=== PATIENT | female | born 1935 | race Caucasian/White ===

== ENCOUNTER 2016-08-30 03:59 | Observation (INO) | payer MEDICARE, OTHER ==
--- NOTE | ~2016-08-30 | DS ---
Discharge Summary [facility] [address] [place]. [address] NAME: RENATA SUAREZ : 37 STATUS : DIS Patsy PAT#: [id number] AGE: 80 ADM/REG DATE : 08/30/16 MR#: [id number] REPORT SERV DATE: 09/02/16 DICTATED BY: JR. MARCANO WILLIAM JOHN DATE: 09/01/16 REPORT STATUS : Draft TRANSCRIBED BY: MODL DATE: 09/01/16 ADMISSION DATE: 08/30/2016 DISCHARGE DATE: 09/01/2016 DISCHARGE DIAGNOSES: 1. Atrial fibrillation with rapid ventricular response. 2. Chronic obstructive pulmonary disease. 3. Culture negative urinary tract infection. 4. Acute kidney injury. 5. Elevated troponin without symptoms or EKG felt to be secondary to atrial fibrillation. 6. Hypotension secondary to hypovolemia. OPERATIONS, PROCEDURES, AND TREATMENTS: 1. Echocardiogram done 08/30/2016 which showed normal left ventricular systolic function, ejection fraction of 55% with mild diastolic dysfunction, normal right ventricular chamber size and systolic function, no significant valvular regurgitation, or stenosis. 2. Chest x-ray done 08/30/2016, which showed normal lungs, heart size normal. 3. Chest x-ray done 09/01/2016 personally reviewed was normal. CONSULTING PHYSICIAN: Dr. Mark of Cardiology. DISCHARGE MEDICATIONS: 1. Diltiazem CD 180 mg orally daily. 2. Propafenone 150 mg orally three times a day. 3. Coumadin 5 mg orally daily, dispensing one week supply and following up for INR in the Coumadin Clinic at [facility]. 4. Albuterol inhaler two puffs p.r.n. 5. Levaquin 750 mg orally daily through 09/03/2016. 6. Aspirin 81 mg orally daily. HOSPITAL COURSE: The patient was a 80-year-old white female, presented to emergency room at [facility] at 08/30/2016 with dysuria, weakness, and altered mental status. The patient has recently moved from [place], [place], to be close to her family, moved in with her daughter after her . She has suffered several mechanical falls and has been undergoing an extensive neurologic evaluation including MRI, EEG, EMG, and CT angiogram and is scheduled for followup in that regard. She reportedly had a urine culture with possible ESBL, Klebsiella pneumoniae, and has actually seen Dr. Covarrubias for this. She has persistent dysuria with suprapubic discomfort and has had increasing confusion over the past 24 hours and was therefore admitted to [facility]. Initial exam showed the patient to be afebrile, heart rate in the 160s, respiratory rate of 22, repeat heart rate was 110. For exact details of the admission history, physical, and data, please see Dr. Wheeler's excellent dictated history and physical. The patient is admitted to [facility] for atrial fibrillation with rapid ventricular response. She was placed on diltiazem drip and converted over to oral. Her CHADS score was Discharge Summary [facility] [address] [place] [address] NAME: RENATA SUAREZ : 36 STATUS : DIS Patsy PAT#: [id number] AGE: 80 ADM/REG DATE : 08/30/16 MR#: [id number] REPORT SERV DATE: 09/02/16 DICTATED BY: JR. MARCANO WILLIAM JOHN DATE: 09/01/16 REPORT STATUS : Draft TRANSCRIBED BY: TAM DATE: 09/01/16 3. She was started on Coumadin. The patient was also on heparin drip. I discussed this with Dr. Mark. He felt this was not necessary. The patient was found to have elevated troponins which was thought to be due to atrial fibrillation/rapid ventricular response. The patient had an echocardiogram without significant dysfunction other than mild diastolic dysfunction. Please see above for details. She was placed on propafenone and tolerated this well. The patient will be discharged on aspirin, propafenone, diltiazem, and Coumadin. Her INR at discharge is 1.2. She will follow up with the Coumadin Clinic at [facility] on Sunday for redraw. I dispensed one week's worth of Coumadin. Regarding the urinary tract infection, a review of her outpatient cultures done 08/07/2016 showed Klebsiella pneumoniae which was sensitive to all antibiotics checked including ciprofloxacin. She was placed on Levaquin for a 5-day total course. Regarding the acute kidney injury, this resolved without incident. The patient will be discharged home today 09/01/2016. She will follow up with Dr. Mark next available; with her primary care provider, Dr. Perdue, in one to two weeks; and she will follow up with Coumadin clinic on Sunday. Again, her discharge INR is 1.2, and she was dispensed seven tablets of 5 mg of Coumadin. DISCHARGE DIET: Cardiac. ACTIVITY: As tolerated. For discharge exam and laboratory, please see daily progress note. This discharge took 33 minutes for patient encounter, coordination of care, and documentation. WGabriellaF/CARLOSL Moses Marcano Jr, MD / [id number] CC: Moses Marcano Jr, MD Allen Sherwood, M.D.
--- NOTE | ~2016-08-30 | CN ---
Consultation Report [facility] [address] [place]. [address] NAME: RENATA SUAREZ : 37 STATUS : ADM Patsy PAT#: [id number] AGE: 80 ADM/REG DATE : 08/30/16 MR#: [id number] REPORT SERV DATE: 08/30/16 DICTATED BY: MOSES GAVIN DATE: 08/30/16 REPORT STATUS : Draft TRANSCRIBED BY: MODL DATE: 08/30/16 CARDIOLOGY CONSULTATION DATE OF CONSULTATION: REASON FOR CONSULTATION: Atrial fibrillation. HISTORY OF PRESENT ILLNESS: Ms. Suarez is a 80-year-old woman with a possible history of COPD. She recently moved from [place] after the of her to live with her daughter. She has had problems with recurrent falls and is having a neurologic evaluation as well as recurrent bladder infections. She was brought to the hospital due to dysuria, weakness, and mental status changes which I think was more confusion. She denies any particular symptoms and she does know she is in the hospital, but is unclear why she is here. She says she may have had a reaction to her antibiotic. She denies chest pain or dyspnea. No palpitations or lightheadedness. REVIEW OF SYSTEMS: Some chills were reported before coming in, but no fever, no chest pain, palpitations, dyspnea, or nausea. The review of systems is as per the history of present illness. Ten other systems are negative. PAST MEDICAL HISTORY: Possible COPD based on albuterol use at home, recurrent UTIs, and recurrent falls. FAMILY HISTORY: Positive for coronary artery disease and stroke. SOCIAL HISTORY: The patient is , is currently living with her daughter. ALLERGIES: SULFA, NEOMYCIN, BACITRACIN, CIPROFLOXACIN, POLYMYXIN. HOME MEDICATIONS: Acetaminophen, albuterol as directed, artificial tears, and nitrofurantoin. PHYSICAL EXAMINATION: VITAL SIGNS: Heart rates 82, blood pressure 92/54. GENERAL: The patient is pleasant, elderly white female, in no apparent distress. HEENT: Conjunctivae are anicteric, no xanthelasma, lips without cyanosis. NECK: Supple, normal JVP, carotids +2 without bruit. CARDIOVASCULAR: Irregular. Normal S1, S2. No significant murmur. LUNGS: Clear to auscultation. ABDOMEN: Soft, nontender, nondistended, with normal bowel sounds. No hepatomegaly. EXTREMITIES: Trace edema. Consultation Report [address] [place]. [address] NAME: RENATA SUAREZ : 37 STATUS : ADM Patsy PAT#: [id number] AGE: 80 ADM/REG DATE : 08/30/16 MR#: [id number] REPORT SERV DATE: 08/30/16 DICTATED BY: MOSES GAVIN DATE: 08/30/16 REPORT STATUS : Draft TRANSCRIBED BY: MODL DATE: 08/30/16 NEURO/PSYCH: Alert and oriented to person, place and time. No obvious neurologic deficits. Mood and affect normal. DATA: Current EKG shows sinus rhythm with frequent premature atrial beats. Nonspecific ST- segment changes. Hematocrit 45.8, white blood cell count is 13.5. BNP level is 273. Creatinine is 1.39. GFR of 36. Urinalysis is consistent with bladder infection. Troponin 0.38. IMPRESSION: 1. Paroxysmal atrial fibrillation, now back in sinus rhythm. 2. Urinary tract infection. 3. Mental status changes. 4. Demand ischemia. 5. Dehydration. 6. Acute kidney injury. RECOMMENDATIONS: Ms. Suarez presents with mostly mental status changes and dehydration. She did have some atrial fibrillation, but is converted back to sinus rhythm. I think probably her underlying illness is probably what drove her transient atrial fibrillation. We will follow up on her echocardiogram. Her CHADS-VASc 2 score is 3. We would certainly have indication for anticoagulation, although she has had some recurrent falls that would have to be monitored closely. I do not think her elevated troponin is consistent with acute coronary syndrome without any symptoms and does suggest demand ischemia. I think medical management would be warranted. We will have to see what her baseline mental status is. WO/MODL Moses Gavin M.D., Ph.D, F.A.C.C. / [id number] CC: Moses Marcano Jr, MD Allen Sherwood, M.D.
--- NOTE | ~2016-08-30 | HP ---
History And Physical [facility] [address] [place]. [address] NAME: RENATA SUAREZ : 36 STATUS : ADM Patsy PAT#: [id number] AGE: 80 ADM/REG DATE : 08/30/16 MR#: [id number] REPORT SERV DATE: 08/30/16 DICTATED BY: ISRAEL NORWOOD DATE: 08/30/16 REPORT STATUS : Draft TRANSCRIBED BY: MODL DATE: 08/30/16 DATE OF ADMISSION: 08/30/2016 POINT OF ENTRY: [facility] Emergency Department. CHIEF COMPLAINT: Dysuria, weakness, altered mental status. HISTORY OF PRESENT ILLNESS: Ms. Suarez is a 80-year-old female with no significant discernible previous medical history, who was brought to the emergency department today by her family members for reports of persistent dysuria with associated weakness, anorexia, and altered mental status. The patient recently moved up from [place], [place] to be close to her family and recently moved in with her daughter after the recent passing away of her . While up in [place], the patient has suffered multiple mechanical falls and is currently undergoing extensive neurologic evaluation, including MRI, EEG, EMG, and CTA. Results of which are pending at the time of dictation. In addition to her mechanical falls, she was reportedly diagnosed with urinary tract infection in the beginning of July. The urine culture which is available in [facility] shows possible ESBL Klebsiella pneumoniae. She was placed on a week's course of amoxicillin, which did not improve her symptoms nor did it clear her urinary tract infection. Therefore, she was referred to Infectious disease's Dr. Covarrubias. She saw Dr. Covarrubias for the first time in clinic on Sunday and was placed on a course of Macrobid therapy. The patient and family states that she has had persistent dysuria and suprapubic discomfort since her initial diagnosis approximately a month ago. Family has noticed acute worsening of some confusion over the last 24 hours primarily prompting their presentation to the emergency department. They also report chills, anorexia as well as weakness and generalized feeling poorly. She felt so poorly she was unable to attend her neurology follow up yesterday to review the results of all the studies. She denies any fevers, chest pain, palpitations, shortness of breath, abdominal pain, nausea, vomiting, diarrhea, or constipation. COMPREHENSIVE REVIEW OF SYSTEMS: Otherwise negative unless listed in history of present illness. Initial evaluation in the emergency department notable for atrial fibrillation with RVR with heart rates initially in the 160s to 170s with some associated hypotension with blood pressure 80s/50s. With IV fluid resuscitation as well as placement of a Cardizem drip, her heart rates are now better controlled in the 90s to 110s with pressures now in 90s to 100s over 50s to 60s. Labs notable for a creatinine of 1.39, troponin of 0.38, white count of 13,500 as well as a repeat urinalysis consistent with persistent urinary tract infection. The patient was subsequently admitted to the Hospitalist Service for further evaluation and management. PREVIOUS MEDICAL HISTORY: History And Physical [address] [address] NAME: RENATA SUAREZ : 36 STATUS : ADM Patsy PAT#: [id number] AGE: 80 ADM/REG DATE : 08/30/16 MR#: [id number] REPORT SERV DATE: 08/30/16 DICTATED BY: ISRAEL NORWOOD DATE: 08/30/16 REPORT STATUS : Draft TRANSCRIBED BY: TAM DATE: 08/30/16 1. Recurrent urinary tract infection with recent urine culture showing ESBL Klebsiella pneumoniae. 2. Possible COPD. SURGICAL HISTORY: 1. Back surgery. 2. Cholecystectomy. 3. Abdominal hysterectomy. ALLERGIES: CIPROFLOXACIN, NEOSPORIN, TETRACYCLINE, AND SULFA DRUGS. HOME MEDICATIONS: Reportedly just the Macrobid 100 mg b.i.d. Her lists needs to be confirmed by Pharmacy. SOCIAL HISTORY: Denies any tobacco, alcohol, or illicits. Recently . Now lives with her daughter. FAMILY MEDICAL HISTORY: Mother with stroke and coronary artery disease. Father with coronary artery disease. Siblings with Parkinson disease and diabetes. LABORATORY DATA AND IMAGIN. White count is 13.5, hemoglobin is 15.8, hematocrit is 45.8, platelet count is 200. INR 1.0. 2. Sodium is 139, potassium 3.9, chloride 104, carbon dioxide 25, BUN 17, creatinine 1.39, glucose is 132, calcium is 9.4, magnesium is 1.8. 3. Troponin is 0.38, BNP is 274. 4. Lactic acid is 2.2. 5. Urinalysis: Specific gravity is 1.019, cloudy with large leukocyte esterase with 12 red blood cells with 174 white blood cells per high-powered field with many bacteria. 6. Chest x-ray per my review shows no acute cardiopulmonary abnormality. 7. ABG; pH is 7.42, pCO2 is 31, pO2 is 80, bicarbonate is 20, saturating 96% on 2 L of cannula. 8. EKG per my review shows atrial fibrillation with RVR. Heart rates in the 160s-170s. No evidence of any acute ischemia or infarction. PHYSICAL EXAMINATION: VITAL SIGNS: Temperature is afebrile, pulse initially in the 160s, respirations 22, saturating 90% on room air. On recheck, pulse is now in the 110s with blood pressure of 90s/60s. GENERAL: The patient is awake, alert, in no acute distress, resting comfortably. She is a well-developed, well-nourished, elderly female. Family is at bedside. HEENT: Atraumatic and normocephalic. Slightly dry mucous membranes. Pupils are equal, round, reactive to light and accommodation. Extraocular movements intact. No scleral icterus. NECK: No jugular venous distention. No carotid bruits. CARDIAC: Irregularly irregular rate and rhythm. No murmurs or gallops. Normal S1 and S2. LUNGS: Decreased breath sounds in the bases with some inspiratory crackles, which improved History And Physical [address] [address] NAME: RENATA SUAREZ : 36 STATUS : ADM Patsy PAT#: [id number] AGE: 80 ADM/REG DATE : 08/30/16 MR#: [id number] REPORT SERV DATE: 08/30/16 DICTATED BY: ISRAEL NORWOOD DATE: 08/30/16 REPORT STATUS : Draft TRANSCRIBED BY: MODL DATE: 08/30/16 with repeated inspiration. ABDOMEN: Soft, mildly tender to palpation over the suprapubic area. Otherwise, no rebound, guarding, or rigidity. EXTREMITIES: Warm and well perfused. No cyanosis, clubbing, or edema. SKIN: Warm and dry. PSYCH: Affect appropriate. NEURO: Alert and oriented x3. Cranial nerves II through XII grossly intact. Speech is normal. Gait not assessed. ASSESSMENT: Ms. Suarez is a 80-year-old female with recurrent urinary tract infection, recently placed on Macrobid, who presents to the emergency department with persistent dysuria as well as worsening confusion and was found to have evidence of atrial fibrillation with rapid ventricular response. PROBLEM LIST: 1. Atrial fibrillation with rapid ventricular response. 2. Dehydration, acute kidney injury. 3. Hypotension. 4. Leukocytosis. 5. Recurrent urinary tract infections. 6. Elevated troponin level. PLAN: 1. Atrial fibrillation with RVR. The patient's heart rate is much better controlled after digoxin load as well as placed on a diltiazem infusion. The patient's CHADS2-VASc score is 3 minimum. Therefore, we will place her on anticoagulation. We will consult Cardiology for assistance. Order an echocardiogram as well as continue to trend out cardiac enzymes. 2. Urinary tract infection. Given the patient's recent urine culture showing possible ESBL Klebsiella pneumoniae, we will place the patient on IV Merrem. Follow up this urine culture. 3. Acute kidney injury and dehydration. Provide aggressive IV fluid hydration. Recheck BMP in the morning. 4. Elevated troponin level. The patient denies any chest pain. Her EKG is nonischemic. I suspect this is likely demand ischemia from the patient's underlying infection, her AFib with RVR as well as renal insufficiency. We will continue to trend out cardiac enzymes. We will give the patient a single dose of aspirin. Cardiology has been consulted for AFib with RVR as well as we have already been placed on a heparin infusion for AFib with RVR. 5. Leukocytosis, likely secondary to urinary tract infection. Chest x-ray is clear. Blood cultures were obtained as well as urine cultures, which will need to be followed up. Lactic acids within normal limits. 6. Hypotension. The patient initially had some mild hypotension, suspect mainly due to AFib with RVR as well as dehydration. This has improved somewhat with IV fluids as well as improved rate control. We will continue to monitor. Of note, lactic acid was within normal limits. 7. DVT prophylaxis. Heparin infusion. History And Physical [address] [place]. [address] NAME: RENATA SUAREZ DANGELO : 37 STATUS : ADM Patsy PAT#: [id number] AGE: 80 ADM/REG DATE : 08/30/16 MR#: [id number] REPORT SERV DATE: 04/05/17 DICTATED BY: ISRAEL NORWOOD DATE: 08/30/16 REPORT STATUS : Draft TRANSCRIBED BY: TAM DATE: 08/30/16 CODE STATUS: The patient wished to be full code. JCB/TAM Israel Norwood MD / [id number] CC: Quincy Perdue M.D.
[2016-08-30 02:46] LABS: BE (BASE EXCESS) -3.5 MEQ/L (0 +/- 2.5); CARBOXYHEMOGLOBIN 1.8 % (0-3); DEVICE NC; HCO3 (ACTUAL BICARBONATE) 19.9 MEQ/L (23-27); HEMOBLOGIN CONTENT 14.9 G/DL (12-16); INSTRUMENT SERIAL # 8087; METHEMOGLOBIN 0.1 % (0-3); O2 CONTENT 19.7 VOL% (18-24); PCO2 (CO2 TENSION) 31 MMHG (35-45); PO2 (O2 TENSION) 80 MMHG (79-93); SAMPLE Arterial; pH 7.42 (7.37-7.43)
[2016-08-30 02:51] LABS: BASOPHILS 0.1 %; BASOPHILS ABSOLUTE 0.01 10/3/uL (0.0-0.16); EOSINOPHILS 2.5 %; EOSINOPHILS ABSOLUTE 0.33 10/3/uL (0.0-0.53); HEMOGLOBIN 15.8 g/dL (12.0-16.0); IMMATURE GRANULOCYTES 0.4 %; IMMATURE GRANULOCYTES ABSOLUTE 0.05 10/3/uL (0.0-0.11); LYMPHOCYTES 5.3 %; LYMPHOCYTES ABSOLUTE 0.71 10/3/uL (0.67-4.30); MEAN CORPUS HGB CONC 34.5 g/dL (32.0-36.0); MEAN CORPUSCULAR HEMOGLOB 31.4 pg (26.0-34.0); MEAN CORPUSCULAR VOLUME 91.1 fL (80-100); MEAN PLATELET VOLUME 10.7 fL (9.2-13.0); MONOCYTES ABSOLUTE 0.94 10/3/uL (0.21-1.20); NEUTROPHILS 84.7 %; NEUTROPHILS ABSOLUTE 11.42 10/3/uL (2.02-8.40); PLATELET COUNT 200 10/3/uL (150-400); PROTIME (NOT ORD) 13.1 SEC (12.0-14.5); RBC DISTRIBUTION WIDTH 12.9 % (12.0-16.0); RED CELL COUNT 5.03 10/6/uL (4.0-5.6)
[2016-08-30 02:52] LABS: PARTIAL THROMBO TIME 32.1 SEC (22.5-37.2)
[2016-08-30 02:53] LABS: ER CBC TAT 0 Hrs 14 Mins; HEMATOCRIT 45.8 % (36.0-48.0); MANUAL DIFF NO %; WHITE BLOOD CELLS 13.5 10/3/uL (4.5-10.5)
[2016-08-30 03:01] LABS: LACTATE 2.2 MMOL/L (0.3-2.4)
[2016-08-30 03:02] LABS: CALCIUM, SERUM 9.4 MG/DL (8.5-10.4); CHLORIDE, SERUM 104 MMOL/L (96-112); POTASSIUM, SERUM 3.9 MMOL/L (3.5-5.3); SODIUM, SERUM 139 MMOL/L (135-148)
[2016-08-30 03:04] LABS: BUN (BLOOD UREA NITROGEN) 17 MG/DL (6-23); CHEST PAIN PROFILE TAT 0 Hrs 25 Mins; CO2 (CARBON DIOXIDE) 25 MMOL/L (24-34); CREATININE 1.39 MG/DL (0.55-1.02); GFR AFRICAN AMERICAN 42 ML/MIN (>=60); GFR NON AFRICAN AMERICAN 36 ML/MIN (>=60); GLUCOSE, SERUM 132 MG/DL (60-99); TROPONIN I 0.38 NG/ML (<0.05)
[2016-08-30 04:16] LABS: ASCORBIC ACID (UR NOT ORDER) NEG (NEG); BILIRUBIN, URINE NEGATIVE (NEG); ER URINALYSIS TAT 0 Hrs 00 Mins; KETONE, URINE NEGATIVE (NEG); LEUKOCYTE ESTERASE(NOT OR LARGE (NEG); NITRITE (URINE) NEG (NEG); WBC (NOT ORDERED) (RFLEX) 174 (0-5)
[2016-08-30] MEDS ORDERED: 8 HOUR650 MG PO (07:57)
[2016-08-30] MEDS ORDERED: TEARS PURE OPH (07:58)
[2016-08-30] MEDS ORDERED: ALBUTEROL5 PO (07:58)
[2016-08-30] MEDS ORDERED: MACROBID PO (08:02)
[2016-08-30 09:54] LABS: CK-MB 13.2 NG/ML; CKMB INDEX (NOT ORD) 9.5; FREE T4 1.01 NG/DL (0.76-1.46)
[2016-08-30 09:55] LABS: TROPONIN I 2.38 NG/ML (<0.05); ULTRASENSITIVE TSH 2.35 MCIU/ML (0.358-3.740)
[2016-08-30 15:52] LABS: CK-MB 11.6 NG/ML
[2016-08-30 15:54] LABS: CKMB INDEX (NOT ORD) 9.8; TROPONIN I 2.1 NG/ML (<0.05)
[2016-08-31 04:02] LABS: BASOPHILS 0 %; EOSINOPHILS 6.1 %; EOSINOPHILS ABSOLUTE 0.37 10/3/uL (0.0-0.53); LYMPHOCYTES 15.1 %; LYMPHOCYTES ABSOLUTE 0.92 10/3/uL (0.67-4.30); MEAN CORPUS HGB CONC 33.2 g/dL (32.0-36.0); MEAN CORPUSCULAR HEMOGLOB 30.7 pg (26.0-34.0); MEAN CORPUSCULAR VOLUME 92.3 fL (80-100); MEAN PLATELET VOLUME 10.4 fL (9.2-13.0); MONOCYTES 8.2 %; NEUTROPHILS 70.6 %; NEUTROPHILS ABSOLUTE 4.31 10/3/uL (2.02-8.40); PLATELET COUNT 154 10/3/uL (150-400); RBC DISTRIBUTION WIDTH 13.3 % (12.0-16.0)
[2016-08-31 04:08] LABS: HEMOGLOBIN 12.3 g/dL (12.0-16.0); MANUAL DIFF NO %; RED CELL COUNT 4.01 10/6/uL (4.0-5.6); WHITE BLOOD CELLS 6.1 10/3/uL (4.5-10.5)
[2016-08-31 04:34] LABS: CHLORIDE, SERUM 108 MMOL/L (96-112); CO2 (CARBON DIOXIDE) 26 MMOL/L (24-34); POTASSIUM, SERUM 3.8 MMOL/L (3.5-5.3); SODIUM, SERUM 141 MMOL/L (135-148)
[2016-08-31 04:36] LABS: BUN (BLOOD UREA NITROGEN) 13 MG/DL (6-23); CALCIUM, SERUM 8.2 MG/DL (8.5-10.4); CREATININE 0.77 MG/DL (0.55-1.02); GFR AFRICAN AMERICAN 85 ML/MIN (>=60); GFR NON AFRICAN AMERICAN 73 ML/MIN (>=60); GLUCOSE, SERUM 97 MG/DL (60-99)
[2016-09-01 04:24] LABS: PARTIAL THROMBO TIME > 150.0 SEC (22.5-37.2)
[2016-09-01 07:57] LABS: INTERNATIONAL NORMAL RATI 1.2 UNITS (-)
[2016-09-01 07:58] LABS: PROTIME (NOT ORD) 15.1 SEC (12.0-14.5)
[2016-09-01] MEDS ORDERED: CARDCD180 PO (10:18)
[2016-09-01] MEDS ORDERED: LEVAQUIN750 MG PO (10:20)
[2016-09-01] MEDS ORDERED: RYTHMOL150 MG PO (10:22)
[2016-09-01] MEDS ORDERED: C5 PO (10:24)
[2016-09-01] MEDS ORDERED: ASAB PO (10:24)
== END 2016-09-01 12:32 | disposition home or self-care (01) ==
LOC: ER 03:59 → CDU1 06:03
PROVIDERS: Emergency Medicine; Internal Medicine
DX: I48.91 Unspecified atrial fibrillation (principal); J44.9 Chronic obstructive pulmonary disease, unspecified; E86.1 Hypovolemia; N39.0 Urinary tract infection, site not specified; D72.829 Elevated white blood cell count, unspecified; I95.9 Hypotension, unspecified; E86.0 Dehydration; N17.9 Acute kidney failure, unspecified; Z87.440 Personal history of urinary (tract) infections; Z90.49 Acquired absence of other specified parts of digestive tract; Z90.710 Acquired absence of both cervix and uterus; Z88.2 Allergy status to sulfonamides; Z88.8 Allergy status to other drugs, medicaments and biological substances; Z79.899 Other long term (current) drug therapy; Z88.1 Allergy status to other antibiotic agents
CPT/HCPCS: 36600; 71010; 71020; 80048; 81001; 82550; 82553; 82570; 82805; 83605; 83735; 83880; 83935; 84300; 84439; 84443; 84484; 85025; 85610; 85730; 87040; 87086; 93005; 94640; 96372; 96374; 96375; 96376; 99285; A9270-GY; C8929; G0378; J1160; J2185; Q9957

== ENCOUNTER 2016-10-04 13:57 | Emergency (ER) | payer MEDICARE, OTHER ==
[~2016-10-04 13:57] MED LIST: 8 HOUR650 MG PO; ALBUTEROL5 PO; ASAB PO; C5 PO; CARDCD180 PO; LEVAQUIN750 MG PO; MACROBID PO; RYTHMOL150 MG PO; TEARS PURE OPH
[2016-10-04 14:36] LABS: BASOPHILS 0.4 %; BASOPHILS ABSOLUTE 0.02 10/3/uL (0.0-0.16); EOSINOPHILS 6.3 %; EOSINOPHILS ABSOLUTE 0.29 10/3/uL (0.0-0.53); ER CBC TAT 0 Hrs 05 Mins; HEMATOCRIT 41.7 % (36.0-48.0); IMMATURE GRANULOCYTES 0.2 %; IMMATURE GRANULOCYTES ABSOLUTE 0.01 10/3/uL (0.0-0.11); LYMPHOCYTES 48.6 %; LYMPHOCYTES ABSOLUTE 2.22 10/3/uL (0.67-4.30); MANUAL DIFF NO %; MEAN CORPUS HGB CONC 33.6 g/dL (32.0-36.0); MEAN CORPUSCULAR HEMOGLOB 30.3 pg (26.0-34.0); MEAN CORPUSCULAR VOLUME 90.3 fL (80-100); MEAN PLATELET VOLUME 9.9 fL (9.2-13.0); MONOCYTES 8.5 %; MONOCYTES ABSOLUTE 0.39 10/3/uL (0.21-1.20); NEUTROPHILS ABSOLUTE 1.64 10/3/uL (2.02-8.40); PLATELET COUNT 201 10/3/uL (150-400); RED CELL COUNT 4.62 10/6/uL (4.0-5.6); WHITE BLOOD CELLS 4.6 10/3/uL (4.5-10.5)
[2016-10-04 14:44] LABS: INTERNATIONAL NORMAL RATI 1.6 UNITS (-)
[2016-10-04 14:45] LABS: PARTIAL THROMBO TIME 43.1 SEC (22.5-37.2)
[2016-10-04 15:00] LABS: BUN (BLOOD UREA NITROGEN) 12 MG/DL (6-23); CHEST PAIN PROFILE TAT 0 Hrs 29 Mins; CHLORIDE, SERUM 106 MMOL/L (96-112); CREATININE 0.95 MG/DL (0.55-1.02); GFR AFRICAN AMERICAN 66 ML/MIN (>=60); GFR NON AFRICAN AMERICAN 57 ML/MIN (>=60); GLUCOSE, SERUM 103 MG/DL (60-99); SODIUM, SERUM 143 MMOL/L (135-148); TROPONIN I <0.02 NG/ML (<0.05)
[2016-10-04 15:05] LABS: CALCIUM, SERUM 9.4 MG/DL (8.5-10.4); CO2 (CARBON DIOXIDE) 33 MMOL/L (24-34)
== END 2016-10-04 17:38 | disposition home or self-care (01) ==
LOC: ER 13:57
PROVIDERS: Emergency Medicine
DX: I48.91 Unspecified atrial fibrillation (principal); R07.9 Chest pain, unspecified; J44.9 Chronic obstructive pulmonary disease, unspecified; I49.9 Cardiac arrhythmia, unspecified; Z90.710 Acquired absence of both cervix and uterus; Z90.49 Acquired absence of other specified parts of digestive tract; Z88.1 Allergy status to other antibiotic agents; Z88.2 Allergy status to sulfonamides; Z79.82 Long term (current) use of aspirin
CPT/HCPCS: 71010; 80048; 83735; 84443; 84484; 85025; 85610; 85730; 93005; 99285; A9270-GY